=== PATIENT | male | born 1955 ===

== ENCOUNTER 2021-09-26 18:05 | Inpatient (IN) ==
[2021-09-26] MEDS ORDERED: Acetaminophen 325 MG TABLET PO PRN (20:37)
[2021-09-26] MEDS ORDERED: Melatonin 3 MG TABLET PO PRN (20:37)
[2021-09-26] MEDS ORDERED: Naloxone 0.4 MG/ML INJ IVP PRN (20:37)
[2021-09-26] MEDS ORDERED: Ondansetron 4 MG/2 ML VIAL IVP PRN (20:37)
[2021-09-26] MEDS ORDERED: Isovue-370 500 ML BOTTLE IVP ONE (20:40)
[2021-09-26] MEDS ORDERED: Perflutren Lipid Microsphere 1.3 ML in 0.9 % Sodium Chloride 8.7 ML IVP PRN (20:42)
[2021-09-26] MEDS ORDERED: Furosemide 40 MG/4 ML VIAL IVP ONE (20:46)
[2021-09-26 22:07] LABS: Estimated Average Glucose 120 mg/dl; Hemoglobin A1C 5.8 %
[2021-09-26 22:26] LABS: Chol/HDL Ratio 4.8 (0-4.9)
[2021-09-26 22:29] LABS: Troponin I 0.04 ng/mL (< 0.04)
[2021-09-26 22:42] LABS: Thyroid Stimulating Hormone 1.166 mcIU/mL (0.340-5.600)
[2021-09-26] MEDS: carvediloL 6.25 MG TABLET PO SCH (22:54)
[2021-09-26 23:54] LABS: Adenovirus Not Detected (Not Detect); Bordetella Pertussis Not Detected (Not Detect); Chlamydophila pneumoniae Not Detected (Not Detect); Coronavirus 229E Not Detected (Not Detect); Coronavirus HKU1 Not Detected (Not Detect); Coronavirus NL63 Not Detected (Not Detect); Coronavirus OC43 Not Detected (Not Detect); Human Metapneumovirus Not Detected (Not Detect); Human Rhinovirus/Enterovirus Not Detected (Not Detect); Influenza A Subtype 2009 H1 Not Detected (Not Detect); Influenza B Not Detected (Not Detect); Mycoplasma pneumoniae Not Detected (Not Detect); Parainfluenza Virus 1 Not Detected (Not Detect); Parainfluenza Virus 2 Not Detected (Not Detect); Parainfluenza Virus 3 Not Detected (Not Detect); Parainfluenza Virus 4 Not Detected (Not Detect); Respiratory Syncytial Virus Not Detected (Not Detect); SARS-CoV-2 Not Detected (Not Detect)
[2021-09-27] MEDS ORDERED: Aspirin 325 MG TABLET PO ONE (00:27)
[2021-09-27] MEDS ORDERED: *HR* Heparin 5,000 UNIT/ML VIAL IVP PRN ×2 (03:13)
[2021-09-27] MEDS ORDERED: *HR* Heparin 5,000 UNIT/ML VIAL IVP ONE (03:13)
[2021-09-27] MEDS ORDERED: Saline Nasal Spray 44 ML BOTTLE NS PRN (03:45)
[2021-09-27] MEDS ORDERED: Calcium Gluconate 1gm/50mL 1 GM/50 ML BAG IVPB ONE (03:45)
[2021-09-27] MEDS ORDERED: Saliva Stimulant 44.3ml BOTTLE PO PRN (03:45)
[2021-09-27] MEDS: lisinopriL 20 MG TABLET PO SCH (03:47)
[2021-09-27] MEDS: Heparin 25,000UNIT/250ML 1/2NS 25,000 UNIT/250 ML IV.SOLN IVC SCH (04:22)
[2021-09-27 04:35] LABS: Hematocrit 40.1 % (37.5-50.1); Hemoglobin 13.6 g/dL (12.9-16.9); Mean Corpuscular HGB Conc 33.9 g/dL (31.6-35.5); Mean Corpuscular Volume 85.5 fL (83.0-100.0); Platelet Count 317 K/mcL (140-400); Red Blood Count 4.69 M/mcL (4.19-5.50); Red Cell Distribution Width 13.8 % (11.5-14.5); White Blood Count 8.2 K/mcL (4.3-11.1)
[2021-09-27 04:36] LABS: Basophils % 0.1 %; Hematocrit 40.9 % (37.5-50.1); Hemoglobin 13.7 g/dL (12.9-16.9); Immature Granulocytes % 0.4 % (0-4); Lymphocytes # 0.5 K/mcL (0.6-4.6); Lymphocytes % 6.2 %; Mean Corpuscular HGB Conc 33.5 g/dL (31.6-35.5); Mean Corpuscular Hemoglobin 28.7 pg (28.0-33.3); Mean Corpuscular Volume 85.6 fL (83.0-100.0); Mean Platelet Volume 9.9 fL (9.4-12.4); Monocytes # 0.1 K/mcL (0.0-1.3); Monocytes % 1.2 %; Neutrophils # 7.6 K/mcL (1.6-8.9); Platelet Count 311 K/mcL (140-400); Red Blood Count 4.78 M/mcL (4.19-5.50); Red Cell Distribution Width 13.6 % (11.5-14.5); Segmented Neutrophils % 92.1 %; White Blood Count 8.2 K/mcL (4.3-11.1)
[2021-09-27 04:45] LABS: INR 1.3; Prothrombin Time 14.7 Seconds (9.4-12.1)
[2021-09-27 04:48] LABS: Activated Partial Thrombo Time 27.9 Seconds (26.0-36.0)
[2021-09-27 04:52] LABS: Alanine Aminotransferase 14 Units/L (7-52); Albumin 3.7 g/dL (3.5-5.7); Albumin/Globulin Ratio 1.1 (1.1-2.2); Alkaline Phosphatase 71 Units/L (34-104); Aspartate Amino Transferase 17 Units/L (13-39); BUN/Creatinine Ratio 25 (6-26); Bilirubin,Total 0.8 mg/dL (0.3-1.0); Blood Urea Nitrogen 20 mg/dL (8-23); Calcium 8.7 mg/dL (8.6-10.3); Carbon Dioxide 25 mEq/L (23-29); Chloride 103 mEq/L (98-107); Globulin 3.5 g/dL (2.4-3.5); Glucose 137 mg/dL (70-105); Magnesium 2.3 mg/dL (1.6-2.6); Osmolality,Calculated 289 (280-300); Phosphorous 3.7 mg/dL (2.7-4.5); Potassium 3.9 mEq/L (3.5-5.1); Sodium 137 mEq/L (136-145); Total Protein 7.2 g/dL (6.4-8.9); eGFR For African Americans > 60 (> 60); eGFR For Non-African Americans > 60 (> 60)
[2021-09-27] MEDS: Ipratropium/Albuterol Neb 3 ML IH SCH ×2 (04:59→10:14)
[2021-09-27] MEDS ORDERED: Albumin 25% 25gram/100mL 25 GM/100 ML IV.SOLN IVPB SCH (07:00)
[2021-09-27] MEDS ORDERED: Furosemide 20 MG/2 ML VIAL IVP SCH (08:00)
[2021-09-27] MEDS ORDERED: Chlorhexidine Rinse 15 ML MOUTHWASH MM SCH (09:00)
[2021-09-27] MEDS ORDERED: Lactobacillus 1 EACH CAP.SPRINK PO SCH (09:00)
[2021-09-27] MEDS ORDERED: hydroCHLOROthiazide 25 MG TABLET PO SCH (09:00)
[2021-09-27] MEDS: Artificial Tears SOLN 15 ML BOTTLE BOTH EYES SCH ×2 (09:09→11:04)
[2021-09-27] MEDS: Multivit/Ca/Min/Fe/FA 1 TAB TABLET PO SCH (09:20)
[2021-09-27] MEDS: carvediloL 6.25 MG TABLET PO SCH ×2 (09:20→16:48)
[2021-09-27 10:05] LABS: Bilirubin,Urine Negative (Negative); Blood,Urine Negative (Negative); Clarity,Urine Clear (Clear); Color,Urine Light-Yellow (Yellow); Glucose,Urine (UA) Normal (Normal); Ketones,Urine Negative (Negative); Leukocyte Esterase,Urine Negative (Negative); Nitrite,Urine Negative (Negative); Protein,Urine Trace mg/dL (Neg-Trace); Specific Gravity,Urine > 1.030 (1.010-1.025); Urobilinogen,Urine Normal (Normal)
[2021-09-27] MEDS ORDERED: Ipratropium/Albuterol Neb 3 ML IH PRN (13:23)
[2021-09-27] MEDS: Furosemide 20 MG/2 ML VIAL IVP SCH (16:48)
[2021-09-27 19:35] LABS: RBC,Pleural Fluid 2000 RBC/mcL
[2021-09-27 19:40] LABS: RBC,Pleural Fluid < 2000 RBC/mcL
[2021-09-27 19:46] LABS: Total Protein,Pleural Fluid 2.6 g/dL
[2021-09-27 19:56] LABS: Total Protein,Pleural Fluid 2.5 g/dL
[2021-09-27 20:04] LABS: Appearance of Pleural Fl Clear (Clear)
[2021-09-27 20:04] LABS: Appearance of Pleural Fl Clear (Clear)
[2021-09-27 20:37] LABS: Basophils,Pleural Fluid 0 %; Eosinophils,Pleural Fluid 0 %
[2021-09-27 20:40] LABS: Basophils,Pleural Fluid 0 %; Eosinophils,Pleural Fluid 0 %
[2021-09-28 01:47] LABS: Basophils % 0.2 %; Hematocrit 40.2 % (37.5-50.1); Hemoglobin 13.5 g/dL (12.9-16.9); Immature Granulocytes % 0.5 % (0-4); Lymphocytes % 6.3 %; Mean Corpuscular HGB Conc 33.6 g/dL (31.6-35.5); Mean Corpuscular Hemoglobin 29.4 pg (28.0-33.3); Mean Corpuscular Volume 87.6 fL (83.0-100.0); Mean Platelet Volume 10.4 fL (9.4-12.4); Monocytes # 0.8 K/mcL (0.0-1.3); Monocytes % 5.2 %; Neutrophils # 13.4 K/mcL (1.6-8.9); Platelet Count 286 K/mcL (140-400); Red Blood Count 4.59 M/mcL (4.19-5.50); Red Cell Distribution Width 13.9 % (11.5-14.5); Segmented Neutrophils % 87.8 %; White Blood Count 15.2 K/mcL (4.3-11.1)
[2021-09-28 02:05] LABS: BUN/Creatinine Ratio 35 (6-26); Blood Urea Nitrogen 30 mg/dL (8-23); Calcium 8.8 mg/dL (8.6-10.3); Carbon Dioxide 28 mEq/L (23-29); Chloride 99 mEq/L (98-107); Glucose 165 mg/dL (70-105); Osmolality,Calculated 294 (280-300); Potassium 3.5 mEq/L (3.5-5.1); Sodium 137 mEq/L (136-145); eGFR For African Americans > 60 (> 60); eGFR For Non-African Americans > 60 (> 60)
[2021-09-28] MEDS: Furosemide 20 MG/2 ML VIAL IVP SCH ×2 (09:31→17:24)
[2021-09-28] MEDS: Aspirin 81 MG TAB.CHEW PO SCH (09:31)
[2021-09-28] MEDS: lisinopriL 20 MG TABLET PO SCH (09:31)
[2021-09-28] MEDS: Multivit/Ca/Min/Fe/FA 1 TAB TABLET PO SCH (09:31)
[2021-09-28] MEDS: Spironolactone 12.5 MG TABLET PO SCH (09:31)
[2021-09-28] MEDS: Heparin 25,000UNIT/250ML 1/2NS 25,000 UNIT/250 ML IV.SOLN IVC SCH (09:32)
[2021-09-28] MEDS: carvediloL 6.25 MG TABLET PO SCH ×2 (09:32→17:24)
[2021-09-29 02:27] LABS: Basophils # 0.1 K/mcL (0.0-0.2); Basophils % 0.8 %; Eosinophils # 0.1 K/mcL (0.0-0.6); Eosinophils % 1.8 %; Hemoglobin 14.1 g/dL (12.9-16.9); Immature Granulocytes % 0.3 % (0-4); Lymphocytes # 1.8 K/mcL (0.6-4.6); Lymphocytes % 22.6 %; Mean Corpuscular HGB Conc 32.8 g/dL (31.6-35.5); Mean Corpuscular Hemoglobin 28.9 pg (28.0-33.3); Mean Corpuscular Volume 88.1 fL (83.0-100.0); Mean Platelet Volume 10.1 fL (9.4-12.4); Monocytes # 0.6 K/mcL (0.0-1.3); Monocytes % 7.9 %; Neutrophils # 5.2 K/mcL (1.6-8.9); Platelet Count 299 K/mcL (140-400); Red Blood Count 4.88 M/mcL (4.19-5.50); Red Cell Distribution Width 13.9 % (11.5-14.5); Segmented Neutrophils % 66.6 %; White Blood Count 7.8 K/mcL (4.3-11.1)
[2021-09-29 02:38] LABS: BUN/Creatinine Ratio 41 (6-26); Blood Urea Nitrogen 36 mg/dL (8-23); Calcium 8.6 mg/dL (8.6-10.3); Carbon Dioxide 28 mEq/L (23-29); Chloride 102 mEq/L (98-107); Glucose 112 mg/dL (70-105); Magnesium 2.3 mg/dL (1.6-2.6); Osmolality,Calculated 295 (280-300); Phosphorous 4.2 mg/dL (2.7-4.5); Potassium 3.9 mEq/L (3.5-5.1); Sodium 138 mEq/L (136-145); eGFR For African Americans > 60 (> 60); eGFR For Non-African Americans > 60 (> 60)
[2021-09-29] MEDS: lisinopriL 20 MG TABLET PO SCH (09:05)
[2021-09-29] MEDS: Spironolactone 12.5 MG TABLET PO SCH (09:05)
[2021-09-29] MEDS: Aspirin 81 MG TAB.CHEW PO SCH (09:05)
[2021-09-29] MEDS: Furosemide 20 MG/2 ML VIAL IVP SCH ×2 (09:05→17:30)
[2021-09-29] MEDS: carvediloL 6.25 MG TABLET PO SCH ×2 (09:05→17:30)
[2021-09-29] MEDS: Multivit/Ca/Min/Fe/FA 1 TAB TABLET PO SCH (09:05)
[2021-09-29 11:47] LABS: Amphetamine Screen,Urine Negative ng/mL (Cutoff=1000); Barbiturate Screen,Urine Negative ng/mL (Cutoff=200); Benzodiazepines Screen,Urine Negative ng/mL (Cutoff=200); Cannabinoid Screen,Urine Negative ng/mL (Cutoff = 50); Cocaine Screen,Urine Negative ng/mL (Cutoff= 300); Opiate Screen,Urine Negative ng/mL (Cutoff=300); Phencyclidine Screen,Urine Negative ng/mL (Cutoff=25)
[2021-09-29] MEDS: Heparin 25,000UNIT/250ML 1/2NS 25,000 UNIT/250 ML IV.SOLN IVC SCH (13:48)
[2021-09-29 23:54] LABS: Fluid Source for Albumin PLEURAL FLUID
[2021-09-29 23:54] LABS: Fluid Source for Albumin PLEURAL FLUID
[2021-09-30 01:53] LABS: Basophils # 0.1 K/mcL (0.0-0.2); Basophils % 0.7 %; Eosinophils # 0.6 K/mcL (0.0-0.6); Eosinophils % 7.9 %; Hematocrit 43.6 % (37.5-50.1); Hemoglobin 14.8 g/dL (12.9-16.9); Immature Granulocytes % 0.3 % (0-4); Lymphocytes # 1.7 K/mcL (0.6-4.6); Lymphocytes % 22.5 %; Mean Corpuscular HGB Conc 33.9 g/dL (31.6-35.5); Mean Corpuscular Hemoglobin 29.8 pg (28.0-33.3); Mean Corpuscular Volume 87.7 fL (83.0-100.0); Mean Platelet Volume 9.9 fL (9.4-12.4); Monocytes # 0.6 K/mcL (0.0-1.3); Neutrophils # 4.5 K/mcL (1.6-8.9); Platelet Count 292 K/mcL (140-400); Red Blood Count 4.97 M/mcL (4.19-5.50); Segmented Neutrophils % 60.6 %; White Blood Count 7.4 K/mcL (4.3-11.1)
[2021-09-30 02:11] LABS: BUN/Creatinine Ratio 41 (6-26); Blood Urea Nitrogen 34 mg/dL (8-23); Calcium 8.7 mg/dL (8.6-10.3); Carbon Dioxide 28 mEq/L (23-29); Chloride 103 mEq/L (98-107); Glucose 100 mg/dL (70-105); Osmolality,Calculated 296 (280-300); Sodium 139 mEq/L (136-145); eGFR For African Americans > 60 (> 60); eGFR For Non-African Americans > 60 (> 60)
[2021-09-30] MEDS ORDERED: ISOVUE-370 200 ML INFUS..BTL ONE (07:07)
[2021-09-30] MEDS ORDERED: *HR* Heparin 10,000 UNIT/10 ML VIAL ONE (07:07)
[2021-09-30] MEDS ORDERED: Heparin 1,000 UNITS/500 mL 500 ML ONE (07:07)
[2021-09-30] MEDS ORDERED: Nitroglycerin 1,000 MCG/5 ML VIAL IV ONE (07:08)
[2021-09-30] MEDS ORDERED: 0.9 % Sodium Chloride 2,000 ML ONE (07:08)
[2021-09-30] MEDS: Heparin 25,000UNIT/250ML 1/2NS 25,000 UNIT/250 ML IV.SOLN IVC SCH (07:24)
[2021-09-30] MEDS: Multivit/Ca/Min/Fe/FA 1 TAB TABLET PO SCH (07:54)
[2021-09-30] MEDS: Furosemide 20 MG/2 ML VIAL IVP SCH ×2 (07:54→17:12)
[2021-09-30] MEDS: Spironolactone 12.5 MG TABLET PO SCH (07:54)
[2021-09-30] MEDS: Aspirin 81 MG TAB.CHEW PO SCH (07:54)
[2021-09-30] MEDS: lisinopriL 20 MG TABLET PO SCH (07:54)
[2021-09-30 07:55] LABS: Mycoplasma pneumoniae IgG 0.99 U/L (<=0.09)
[2021-09-30] MEDS: carvediloL 6.25 MG TABLET PO SCH ×2 (07:55→16:03)
[2021-09-30] MEDS ORDERED: *HR* FentaNYL (PF) 100 MCG/2 ML VIAL ONE (13:20)
[2021-09-30] MEDS ORDERED: *HR* Midazolam HCl 2 MG/2 ML VIAL ONE (13:20)
[2021-09-30] MEDS ORDERED: Sennosides/Docusate Sodium TABLET PO PRN (15:54)
[2021-09-30] MEDS: *HR* Heparin 5,000 UNIT/ML VIAL SQ SCH (17:12)
[2021-10-01] MEDS: *HR* Heparin 5,000 UNIT/ML VIAL SQ SCH ×2 (05:35→17:31)
[2021-10-01] MEDS ORDERED: lisinopriL 20 MG TABLET PO SCH (09:00)
[2021-10-01] MEDS ORDERED: Furosemide 40 MG TABLET PO SCH ×2 (09:00)
[2021-10-01] MEDS: Multivit/Ca/Min/Fe/FA 1 TAB TABLET PO SCH (09:23)
[2021-10-01] MEDS: Aspirin 81 MG TAB.CHEW PO SCH (09:23)
[2021-10-01] MEDS: carvediloL 6.25 MG TABLET PO SCH ×2 (09:23→17:30)
[2021-10-01] MEDS: Spironolactone 12.5 MG TABLET PO SCH (09:23)
[2021-10-01] MEDS ORDERED: Isovue-370 500 ML BOTTLE IVP ONE ×2 (19:46→23:53)
[2021-10-02 02:59] LABS: Hematocrit 43.8 % (37.5-50.1); Mean Corpuscular HGB Conc 34.2 g/dL (31.6-35.5); Mean Corpuscular Hemoglobin 29.3 pg (28.0-33.3); Mean Corpuscular Volume 85.5 fL (83.0-100.0); Mean Platelet Volume 9.7 fL (9.4-12.4); Platelet Count 278 K/mcL (140-400); Red Blood Count 5.12 M/mcL (4.19-5.50); Red Cell Distribution Width 13.8 % (11.5-14.5)
[2021-10-02 03:18] LABS: Alanine Aminotransferase 33 Units/L (7-52); Albumin 3.6 g/dL (3.5-5.7); Albumin/Globulin Ratio 1.1 (1.1-2.2); Alkaline Phosphatase 71 Units/L (34-104); Aspartate Amino Transferase 28 Units/L (13-39); BUN/Creatinine Ratio 27 (6-26); Bilirubin,Total 0.6 mg/dL (0.3-1.0); Blood Urea Nitrogen 22 mg/dL (8-23); Calcium 8.8 mg/dL (8.6-10.3); Carbon Dioxide 29 mEq/L (23-29); Chloride 102 mEq/L (98-107); Globulin 3.3 g/dL (2.4-3.5); Glucose 100 mg/dL (70-105); Magnesium 2.4 mg/dL (1.6-2.6); Osmolality,Calculated 287 (280-300); Potassium 3.9 mEq/L (3.5-5.1); Sodium 137 mEq/L (136-145); Total Protein 6.9 g/dL (6.4-8.9); eGFR For African Americans > 60 (> 60); eGFR For Non-African Americans > 60 (> 60)
[2021-10-02] MEDS: Aspirin 81 MG TAB.CHEW PO SCH (07:31)
[2021-10-02] MEDS: Multivit/Ca/Min/Fe/FA 1 TAB TABLET PO SCH (07:31)
[2021-10-02] MEDS: Spironolactone 12.5 MG TABLET PO SCH (07:31)
[2021-10-02] MEDS: carvediloL 6.25 MG TABLET PO SCH ×2 (07:32→16:51)
[2021-10-03] MEDS: Multivit/Ca/Min/Fe/FA 1 TAB TABLET PO SCH (08:03)
[2021-10-03] MEDS: Spironolactone 12.5 MG TABLET PO SCH (08:03)
[2021-10-03] MEDS: Aspirin 81 MG TAB.CHEW PO SCH (08:03)
[2021-10-03] MEDS: carvediloL 6.25 MG TABLET PO SCH ×2 (08:04→17:46)
[2021-10-03] MEDS ORDERED: *HR* FentaNYL (PF) 100 MCG/2 ML VIAL IVP PRN (09:15)
[2021-10-03] MEDS ORDERED: *HR* Midazolam HCl 5 MG/5 ML VIAL IVP PRN (09:15)
[2021-10-03] MEDS ORDERED: 0.9 % Sodium Chloride 500 ML IVC ONE (09:15)
[2021-10-03] MEDS ORDERED: Lidocaine Viscous Oral Soln 15 ML SOLUTION MM PRN (09:15)
[2021-10-04] MEDS: *HR* HYDROcodone/Acet 5/325 mg TABLET PO PRN (00:42)
[2021-10-04] MEDS: Multivit/Ca/Min/Fe/FA 1 TAB TABLET PO SCH (10:08)
[2021-10-04] MEDS: Aspirin 81 MG TAB.CHEW PO SCH (10:10)
[2021-10-04] MEDS: carvediloL 6.25 MG TABLET PO SCH ×2 (10:10→17:04)
[2021-10-04] MEDS: Spironolactone 12.5 MG TABLET PO SCH (10:10)
[2021-10-04] MEDS ORDERED: Lidocaine Viscous Oral Soln 15 ML SOLUTION MM PRN (11:43)
[2021-10-04] MEDS ORDERED: 0.9 % Sodium Chloride 500 ML IVC ONE (11:43)
[2021-10-04] MEDS: *HR* Midazolam HCl 5 MG/5 ML VIAL IVP PRN ×3 (12:20→12:30)
[2021-10-04] MEDS: *HR* FentaNYL (PF) 100 MCG/2 ML VIAL IVP PRN ×3 (12:20→12:30)
[2021-10-04] MEDS ORDERED: *HR* Midazolam HCl 2 MG/2 ML VIAL ONE (13:32)
[2021-10-04] MEDS ORDERED: *HR* FentaNYL (PF) 100 MCG/2 ML VIAL ONE (13:32)
[2021-10-04] MEDS ORDERED: *HR* Heparin 10,000 UNIT/10 ML VIAL ONE (13:32)
[2021-10-04] MEDS ORDERED: Nitroglycerin 1,000 MCG/5 ML VIAL IV ONE (13:33)
[2021-10-04] MEDS ORDERED: ISOVUE-370 200 ML INFUS..BTL ONE (13:33)
[2021-10-04] MEDS ORDERED: 0.9 % Sodium Chloride 2,000 ML ONE (13:33)
[2021-10-04] MEDS ORDERED: Heparin 1,000 UNITS/500 mL 500 ML ONE (13:33)
[2021-10-04] MEDS: *HR* Heparin 5,000 UNIT/ML VIAL SQ SCH (17:04)
[2021-10-05] MEDS: *HR* Heparin 5,000 UNIT/ML VIAL SQ SCH ×2 (06:24→16:39)
[2021-10-05] MEDS: Multivit/Ca/Min/Fe/FA 1 TAB TABLET PO SCH (09:07)
[2021-10-05] MEDS: Spironolactone 12.5 MG TABLET PO SCH (09:07)
[2021-10-05] MEDS: Aspirin 81 MG TAB.CHEW PO SCH (09:07)
[2021-10-05] MEDS: carvediloL 6.25 MG TABLET PO SCH ×3 (09:08→16:40)
[2021-10-05] MEDS: *HR* HYDROcodone/Acet 5/325 mg TABLET PO PRN (20:12)
[2021-10-06 02:50] LABS: Basophils # 0.1 K/mcL (0.0-0.2); Basophils % 0.7 %; Eosinophils # 0.8 K/mcL (0.0-0.6); Eosinophils % 10.7 %; Hematocrit 43.5 % (37.5-50.1); Hemoglobin 14.4 g/dL (12.9-16.9); Immature Granulocytes % 0.3 % (0-4); Lymphocytes # 1.9 K/mcL (0.6-4.6); Lymphocytes % 27.1 %; Mean Corpuscular HGB Conc 33.1 g/dL (31.6-35.5); Mean Corpuscular Hemoglobin 29.2 pg (28.0-33.3); Mean Corpuscular Volume 88.2 fL (83.0-100.0); Mean Platelet Volume 10.4 fL (9.4-12.4); Monocytes # 0.7 K/mcL (0.0-1.3); Monocytes % 9.4 %; Neutrophils # 3.6 K/mcL (1.6-8.9); Platelet Count 217 K/mcL (140-400); Red Blood Count 4.93 M/mcL (4.19-5.50); Red Cell Distribution Width 13.5 % (11.5-14.5); Segmented Neutrophils % 51.8 %
[2021-10-06 03:12] LABS: BUN/Creatinine Ratio 28 (6-26); Blood Urea Nitrogen 23 mg/dL (8-23); Calcium 8.6 mg/dL (8.6-10.3); Carbon Dioxide 27 mEq/L (23-29); Chloride 105 mEq/L (98-107); Glucose 89 mg/dL (70-105); Osmolality,Calculated 287 (280-300); Potassium 4.4 mEq/L (3.5-5.1); Sodium 137 mEq/L (136-145); eGFR For African Americans > 60 (> 60); eGFR For Non-African Americans > 60 (> 60)
[2021-10-06] MEDS: *HR* Heparin 5,000 UNIT/ML VIAL SQ SCH ×2 (05:40→17:11)
[2021-10-06] MEDS: Multivit/Ca/Min/Fe/FA 1 TAB TABLET PO SCH (07:48)
[2021-10-06] MEDS: Spironolactone 12.5 MG TABLET PO SCH (07:49)
[2021-10-06] MEDS: Aspirin 81 MG TAB.CHEW PO SCH (07:49)
[2021-10-06] MEDS: carvediloL 6.25 MG TABLET PO SCH ×2 (07:49→17:11)
[2021-10-07] MEDS: *HR* Heparin 5,000 UNIT/ML VIAL SQ SCH ×2 (05:10→17:40)
[2021-10-07] MEDS: Aspirin 81 MG TAB.CHEW PO SCH (09:09)
[2021-10-07] MEDS: Multivit/Ca/Min/Fe/FA 1 TAB TABLET PO SCH (09:09)
[2021-10-07] MEDS: carvediloL 6.25 MG TABLET PO SCH ×2 (09:09→17:39)
[2021-10-07] MEDS: Spironolactone 12.5 MG TABLET PO SCH (09:09)
[2021-10-08] MEDS: *HR* Heparin 5,000 UNIT/ML VIAL SQ SCH ×2 (06:39→17:23)
[2021-10-08] MEDS ORDERED: del Nido Cardioplegia Solution PF ONE ×2 (07:00)
[2021-10-08] MEDS ORDERED: Buckersberg's Blood Cardioplegia PF ONE (07:00)
[2021-10-08] MEDS: Spironolactone 12.5 MG TABLET PO SCH (09:14)
[2021-10-08] MEDS: Multivit/Ca/Min/Fe/FA 1 TAB TABLET PO SCH (09:14)
[2021-10-08] MEDS: carvediloL 6.25 MG TABLET PO SCH ×2 (09:14→17:23)
[2021-10-08] MEDS: Aspirin 81 MG TAB.CHEW PO SCH (09:14)
[2021-10-09 04:08] LABS: Basophils # 0.1 K/mcL (0.0-0.2); Eosinophils # 0.9 K/mcL (0.0-0.6); Eosinophils % 10.1 %; Hematocrit 43.4 % (37.5-50.1); Hemoglobin 14.3 g/dL (12.9-16.9); Immature Granulocytes % 0.2 % (0-4); Lymphocytes # 1.9 K/mcL (0.6-4.6); Lymphocytes % 22.1 %; Mean Corpuscular HGB Conc 32.9 g/dL (31.6-35.5); Mean Corpuscular Hemoglobin 28.8 pg (28.0-33.3); Mean Corpuscular Volume 87.3 fL (83.0-100.0); Mean Platelet Volume 10.7 fL (9.4-12.4); Monocytes # 0.6 K/mcL (0.0-1.3); Monocytes % 7.6 %; Platelet Count 215 K/mcL (140-400); Red Blood Count 4.97 M/mcL (4.19-5.50); Red Cell Distribution Width 13.3 % (11.5-14.5); White Blood Count 8.4 K/mcL (4.3-11.1)
[2021-10-09 04:24] LABS: BUN/Creatinine Ratio 24 (6-26); Blood Urea Nitrogen 20 mg/dL (8-23); Calcium 9.4 mg/dL (8.6-10.3); Carbon Dioxide 26 mEq/L (23-29); Chloride 102 mEq/L (98-107); Glucose 92 mg/dL (70-105); Magnesium 2.2 mg/dL (1.6-2.6); Osmolality,Calculated 280 (280-300); Phosphorous 4.2 mg/dL (2.7-4.5); Potassium 4.8 mEq/L (3.5-5.1); Sodium 134 mEq/L (136-145); eGFR For African Americans > 60 (> 60); eGFR For Non-African Americans > 60 (> 60)
[2021-10-09] MEDS: *HR* Heparin 5,000 UNIT/ML VIAL SQ SCH ×2 (06:23→17:35)
[2021-10-09] MEDS ORDERED: Norepinephrine 4 MG in 0.9 % Sodium Chloride 250 ML IVC PRN (07:00)
[2021-10-09] MEDS ORDERED: Heparin 15,000 UNIT in 0.9 % Sodium Chloride 500 ML IV ONE (07:00)
[2021-10-09] MEDS: carvediloL 6.25 MG TABLET PO SCH ×2 (08:44→17:35)
[2021-10-09] MEDS: Multivit/Ca/Min/Fe/FA 1 TAB TABLET PO SCH (08:44)
[2021-10-09] MEDS: Aspirin 81 MG TAB.CHEW PO SCH (08:44)
[2021-10-09] MEDS: Spironolactone 12.5 MG TABLET PO SCH (08:44)
[2021-10-09 09:59] LABS: INR 1.1; Prothrombin Time 12.3 Seconds (9.4-12.1)
[2021-10-09] MEDS ORDERED: Aspirin 81 MG TAB.CHEW PO ONE (10:00)
[2021-10-09 10:02] LABS: Activated Partial Thrombo Time 31.9 Seconds (26.0-36.0)
[2021-10-09 10:09] LABS: Chol/HDL Ratio 3.6 (0-4.9)
[2021-10-09] MEDS ORDERED: CeFAZolin Syr 2,000MG/20 ML 2,000 MG/20 ML SYRINGE IVPB ONE (12:00)
[2021-10-09] MEDS: Chlorhexidine Rinse 15 ML MOUTHWASH MM SCH ×2 (12:41→20:56)
[2021-10-09] MEDS ORDERED: *HR* Vasopressin 20 UNIT/ML VIAL ONE (13:11)
[2021-10-09] MEDS ORDERED: NiCARdipine 2.5 MG/10 ML Syringe IVPB ONE (13:11)
[2021-10-09] MEDS ORDERED: *HR* FentaNYL (PF) 100 MCG/2 ML VIAL ONE (13:19)
[2021-10-09] MEDS ORDERED: *HR* Midazolam HCl 2 MG/2 ML VIAL ONE (13:19)
[2021-10-09] MEDS ORDERED: 0.9 % Sodium Chloride 2,000 ML ONE (13:37)
[2021-10-09] MEDS ORDERED: Heparin 1,000 UNITS/500 mL 2,000 ML ONE (13:37)
[2021-10-09] MEDS ORDERED: *HR* Heparin 10,000 UNIT/10 ML VIAL ONE (13:37)
[2021-10-09] MEDS ORDERED: ISOVUE-370 200 ML INFUS..BTL ONE (13:37)
[2021-10-09] MEDS ORDERED: Protamine Sulfate 50 MG/5 ML VIAL IVP ONE (13:37)
[2021-10-09] MEDS ORDERED: Vancomycin 1,000 MG VIAL ONE (13:42)
[2021-10-09] MEDS ORDERED: 0.9 % Sodium Chloride 250 ML ONE (13:42)
[2021-10-09] MEDS ORDERED: 0.9 % Sodium Chloride 1,000 ML ONE (13:51)
[2021-10-09] MEDS ORDERED: Ondansetron 4 MG/2 ML VIAL IVP PRN (15:56)
[2021-10-09] MEDS ORDERED: *HR* Propofol 500 MG/50 ML BOTTLE IVP ONE (16:49)
[2021-10-09] MEDS ORDERED: *HR* Propofol 200 MG/20 ML VIAL IVP ONE (16:49)
[2021-10-10 03:07] LABS: Basophils # 0.1 K/mcL (0.0-0.2); Basophils % 0.6 %; Eosinophils # 0.8 K/mcL (0.0-0.6); Eosinophils % 7.5 %; Hematocrit 41.9 % (37.5-50.1); Immature Granulocytes % 0.4 % (0-4); Lymphocytes # 1.1 K/mcL (0.6-4.6); Lymphocytes % 10.8 %; Mean Corpuscular HGB Conc 33.4 g/dL (31.6-35.5); Mean Corpuscular Hemoglobin 29.2 pg (28.0-33.3); Mean Corpuscular Volume 87.5 fL (83.0-100.0); Mean Platelet Volume 10.6 fL (9.4-12.4); Monocytes # 0.8 K/mcL (0.0-1.3); Monocytes % 7.2 %; Neutrophils # 7.7 K/mcL (1.6-8.9); Platelet Count 189 K/mcL (140-400); Red Blood Count 4.79 M/mcL (4.19-5.50); Red Cell Distribution Width 13.2 % (11.5-14.5); Segmented Neutrophils % 73.5 %; White Blood Count 10.5 K/mcL (4.3-11.1)
[2021-10-10 03:27] LABS: BUN/Creatinine Ratio 20 (6-26); Blood Urea Nitrogen 16 mg/dL (8-23); Calcium 8.8 mg/dL (8.6-10.3); Carbon Dioxide 25 mEq/L (23-29); Chloride 101 mEq/L (98-107); Glucose 81 mg/dL (70-105); Magnesium 2.1 mg/dL (1.6-2.6); Osmolality,Calculated 280 (280-300); Potassium 4.5 mEq/L (3.5-5.1); Sodium 135 mEq/L (136-145); eGFR For African Americans > 60 (> 60); eGFR For Non-African Americans > 60 (> 60)
[2021-10-10] MEDS ORDERED: Perflutren Lipid Microsphere 1.3 ML in 0.9 % Sodium Chloride 8.7 ML IVP PRN (06:00)
[2021-10-10] MEDS: *HR* Heparin 5,000 UNIT/ML VIAL SQ SCH (06:15)
[2021-10-10] MEDS: carvediloL 6.25 MG TABLET PO SCH (08:24)
[2021-10-10] MEDS: Spironolactone 12.5 MG TABLET PO SCH (08:24)
[2021-10-10] MEDS: Multivit/Ca/Min/Fe/FA 1 TAB TABLET PO SCH (08:24)
[2021-10-10] MEDS: Aspirin 81 MG TAB.CHEW PO SCH (08:25)
[2021-10-10] MEDS: *HR* HYDROcodone/Acet 5/325 mg TABLET PO PRN (08:25)
[2021-10-10 10:59] VITALS: TEMP 98.3
[2021-10-10] MEDS ORDERED: lisinopriL 5 MG TABLET PO SCH (11:00)
[2021-10-10] MEDS ORDERED: Furosemide 20 MG TABLET PO PRN (13:27)
[2021-10-10 15:02] VITALS: BP 102/55; PULSE 63; O2SAT 99
== END 2021-10-10 16:50 | disposition home or self-care (01) | DRG 266 ==
LOC: 2NENU → SUATTDRO 20:41 → 2NNU 10-09 16:16
PROVIDERS: ADMIT Internal Medicine; ATTEND Internal Medicine